=== PATIENT | male | born 1945 | race Caucasian/White ===

== ENCOUNTER → 2017-09-07 | Outpatient (CLI) | payer OTHER ==
[~2017-09-07] MED LIST: ASPIRIN81 M2 PO; ASPIRIN81 MG PO; FLECAINIDE ACE100 MG PO; FUROSEMIDE40 MG PO; GABAPENTIN600 MG PO; GENERLAC10 GM/15 M PO; GLIMEPIRIDE1 MG PO; GLIMEPIRIDE2 MG PO; HYDROMORPHONE HC2 MG PO; HYDROMORPHONE HC4 MG PO; NADOLOL20 MG PO; NORCO 10-325 T1 EACH PO; NORCO 7.5-3251 EACH PO; OMEGA 3 PO; PANTOPRAZOLE SO40 MG PO; SPIRONOLACTONE50 MG PO; TRAMADOL HCL50 MG PO; XIFAXAN550 MG PO; Z.0.GABAPENTIN600 MG PO; Z.0.GLIMEPIRIDE2 MG PO; Z.0.LISINOPRIL5 MG PO; Z.0.MELOXICAM15 MG PO; Z.0.SINGULAIR10 MG PO; Z.2.METFORMIN HCL500 PO; [UNRECOGNIZED DRUG - OTHER] PO; [UNRECOGNIZED DRUG - OTHER] PO
[2017-09-16 11:42] LABS: ALANINE AMINOTRANSFERASE 96 IU/L (0-55); ALBUMIN 2.6 g/dL (3.5-5.0); ALBUMIN/GLOBULIN RATIO 0.6 (0.8-2.0); ALKALINE PHOSPHATASE 278 IU/L (40-150); ANION GAP 17.7 mmol/L (8-16); BLOOD UREA NITROGEN 17 mg/dL (7-26); BUN/CREATININE RATIO 19 (6-25); CALCIUM 8.5 mg/dL (8.4-10.2); CARBON DIOXIDE 24 mmol/L (22-29); CHLORIDE 87 mmol/L (98-107); CREATININE, SERUM 0.89 mg/dL (0.72-1.25); EST GLOMERULAR FILTRATION RATE > 60 ML/MIN (60-); GLUCOSE 81 mg/dL (74-118); POTASSIUM 4.7 mmol/L (3.5-5.1); SODIUM 124 mmol/L (136-145)
== END ==
LOC: NPA 12:00
PROVIDERS: ATTEND Internal Medicine Hematology & Oncology
DX: E87.2 Acidosis (principal)
CPT/HCPCS: 36415; 80053

== ENCOUNTER → 2017-09-09 | Outpatient (CLI) | payer OTHER ==
[2017-09-16 11:48] LABS: ANION GAP 16.5 mmol/L (8-16); BLOOD UREA NITROGEN 14 mg/dL (7-26); CARBON DIOXIDE 23 mmol/L (22-29); CHLORIDE 88 mmol/L (98-107); POTASSIUM 4.5 mmol/L (3.5-5.1); SODIUM 123 mmol/L (136-145)
[2017-09-16 11:49] LABS: BUN/CREATININE RATIO 16 (6-25); CALCIUM 8.5 mg/dL (8.4-10.2); CREATININE, SERUM 0.85 mg/dL (0.72-1.25); EST GLOMERULAR FILTRATION RATE > 60 ML/MIN (60-); GLUCOSE 160 mg/dL (74-118)
== END ==
LOC: NPA 12:00
DX: R69 Illness, unspecified (principal)
CPT/HCPCS: 36415; 80048

== ENCOUNTER → 2017-09-14 | Outpatient (CLI) | payer OTHER ==
[2017-09-16 11:46] LABS: ALANINE AMINOTRANSFERASE 102 IU/L (0-55); ALBUMIN 2.5 g/dL (3.5-5.0); ALBUMIN/GLOBULIN RATIO 0.6 (0.8-2.0); ALKALINE PHOSPHATASE 293 IU/L (40-150); ANION GAP 14.3 mmol/L (8-16); BLOOD UREA NITROGEN 9 mg/dL (7-26); BUN/CREATININE RATIO 11 (6-25); CALCIUM 8.7 mg/dL (8.4-10.2); CARBON DIOXIDE 27 mmol/L (22-29); CHLORIDE 93 mmol/L (98-107); CREATININE, SERUM 0.81 mg/dL (0.72-1.25); EST GLOMERULAR FILTRATION RATE > 60 ML/MIN (60-); GLUCOSE 131 mg/dL (74-118); POTASSIUM 4.3 mmol/L (3.5-5.1); SODIUM 130 mmol/L (136-145)
== END ==
LOC: NPA 12:00
PROVIDERS: ATTEND Internal Medicine Hematology & Oncology
DX: R69 Illness, unspecified (principal)
CPT/HCPCS: 36415; 80053